=== PATIENT | male | born 1980 | race Native Hawaiian/Other Pacific Islander ===

== ENCOUNTER 2016-05-22 23:07 | Emergency (ER) | payer OTHER | END 2016-05-23 02:55 | disposition home or self-care (01) | LOC: CED 23:07 | DX: H66.012 Acute suppurative otitis media with spontaneous rupture of ear drum, left ear (principal); H01.001 Unspecified blepharitis right upper eyelid; F17.210 Nicotine dependence, cigarettes, uncomplicated | CPT/HCPCS: 99282 ==